=== PATIENT | female | born 1965 | race Caucasian/White ===

== ENCOUNTER 2016-02-15 11:59 | Emergency (ER) | payer OTHER ==
--- NOTE | 2016-02-15 13:17 | RAD ---
02/15/2016 1:14 PM CHEST - 2 VIEWS History: Fever and cough for one week Comparison: None Findings: Two views of the chest are obtained. The lungs are clear with out effusion or pneumothorax. The cardiomediastinal silhouette is unremarkable.. The osseous structures are intact.. IMPRESSION: No acute intrathoracic process.
== END 2016-02-15 13:40 | disposition home or self-care (01) ==
LOC: ED 11:59
DX: B34.9 Viral infection, unspecified (principal); E11.9 Type 2 diabetes mellitus without complications